=== PATIENT | male | born 1980 | race Caucasian/White ===

== ENCOUNTER 2016-09-10 03:13 | Emergency (ER) | payer OTHER ==
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
[2016-09-10 03:30] VITALS: TEMP 98.2
--- NOTE | 2016-09-10 04:27 | CT ---
EXAM: CT Head Without Intravenous Contrast. CLINICAL HISTORY: Reason: pain TECHNIQUE: Axial computed tomography images of the head/brain without intravenous contrast. CTDI is 57.4 mGy and DLP is 1047.1 mGy-cm COMPARISON: No relevant prior studies available. FINDINGS: Brain: Unremarkable. No evidence of acute cerebral infarction or hemorrhage. Ventricles: Unremarkable. No ventriculomegaly. Bones/joints: Unremarkable. No acute fracture. Soft tissues: Unremarkable. Sinuses: Mild bilateral maxillary sinus mucosal thickening which has a chronic appearance. Mild bilateral ethmoid sinus mucosal thickening and mild mucosal thickening in the left sphenoid sinus. Mastoid air cells: Unremarkable as visualized. No mastoid effusion. IMPRESSION: No evidence of acute intracranial abnormality. Paranasal sinus disease.
--- NOTE | 2016-09-10 04:40 | XR ---
EXAM: XR Left Forearm, 2 Views. CLINICAL HISTORY: Reason: Pain TECHNIQUE: Frontal and lateral views of the left forearm. COMPARISON: No relevant prior studies available. FINDINGS: Bones/joints: No evidence of fracture, dislocation or bony erosion. Soft tissues: Focal soft tissue swelling along dorsum mid forearm. IMPRESSION: No evidence of acute fracture or dislocation. Focal soft tissue swelling along dorsal aspect midforearm.
--- NOTE | 2016-09-10 04:43 | XR ---
EXAM: XR Left Hand Complete, 3 or More Views. CLINICAL HISTORY: Reason: Pain TECHNIQUE: Frontal, lateral and oblique views of the left hand. COMPARISON: No relevant prior studies available. FINDINGS: Bones/joints: Unremarkable. No acute fracture. No dislocation. Soft tissues: Unremarkable. No radiopaque foreign body. IMPRESSION: No significant bone or joint abnormalities.
[2016-09-10 04:51] VITALS: BP 120/78; PULSE 80; RESP 14
== END 2016-09-10 04:49 | disposition home or self-care (01) ==
LOC: EC 03:13
DX: S50.12XA Contusion of left forearm, initial encounter (principal); S09.90XA Unspecified injury of head, initial encounter; G40.909 Epilepsy, unspecified, not intractable, without status epilepticus; Z79.899 Other long term (current) drug therapy; Y08.02XA Assault by strike by baseball bat, initial encounter; Y92.149 Unspecified place in prison as the place of occurrence of the external cause
CPT/HCPCS: 70450; 99283